=== PATIENT | female | born 1980 | race Caucasian/White ===

== ENCOUNTER 2017-04-01 17:24 | Emergency (ER) | payer SELFPAY ==
[2017-04-01 17:40] VITALS: BP 119/64
--- NOTE | 2017-04-01 18:32 | UC ---
Hand/Wrist HPI - History Of Current Complaint Chief Complaint: UCUpperExtremity Stated Complaint: RIGHT RING FINGER INJURY Time Seen by Provider: 04/01/17 18:24 Hx Obtained From: Patient Hx Last Menstrual Period: 04/01/17 ?: No Onset/Duration: Sudden Onset - Hit hand on the ground last night., Still Present Severity Initially: Moderate Severity Currently: Moderate Pain Intensity: 7 Character Of Pain: Aching, Throbbing, Burning - with movement - Allergies/Home Medications Allergies/Adverse Reactions: Allergies Allergy/AdvReac Type Severity Reaction Status Date / Time Penicillins Allergy Intermediate Hives Verified 04/12/16 10:04 Sulfa Drugs Allergy Intermediate Hives Verified 04/12/16 10:04 Povidone Iodine Allergy Rash Verified 04/12/16 10:04 [From Betadine] Ibuprofen AdvReac Intermediate GI Upset Verified 04/12/16 10:04 Morphine AdvReac Intermediate Itching Verified 04/12/16 10:04 Iodine AdvReac Mild Rash Verified 04/12/16 10:04 Morphine and Related AdvReac Abdominal Verified 04/12/16 10:44 Pain EGGS Allergy See Comment Uncoded 09/20/15 03:38 CAT GUT SUTURES AdvReac Severe SEVERE Uncoded 09/19/15 14:17 SWELLING PMH/Surg Hx/FS Hx/Imm Hx Endocrine History: Hypothyroidism Cardiovascular History: Hypertension Psychological History: Depression - Surgical History Surgical History: Yes Surgery Procedure, Year, and Place: 1999 [place]OMY- [facility] [place], [place]. 3 C-SECTIONS- [place] 2007 TUBAL LIGATION- [place] hemilaminotomy with disc excision 05/2013 [place] [facility]IN[facility] L5-S1. CHOLECYSTECTOMY--09/2015 - Family History Known Family History: Positive: Unknown, Cardiac Disease, Hypertension, Diabetes - Social History Occupation: Employed Full-time Lives: With Family Alcohol Use: Rare Substance Use Type: None Smoking Status (MU): Current Every Day Smoker Type: Cigarettes Amount Used/How Often: 8 cigarettes/day Length of Time of Smoking/Using Tobacco: 20 YRS Have You Smoked in the Last Year: Yes Household Exposure Type: Cigarettes Cessation Counseling: Patient Advised to Stop - Immunization History Most Recent Influenza Vaccination: none Most Recent Tetanus Shot: 04/06 Most Recent Pneumonia Vaccination: never Review of Systems Skin: Bruising - right 4th finger Neurological: Numbness - right 4th finger Is Patient Immunocompromised?: No All Other Systems Reviewed And Are Negative: Yes Physical Exam Triage Information Reviewed: Yes Appearance: Well-Appearing, No Pain Distress, Well-Nourished Vital Signs: Initial Vital Signs Temp 98.2 F 04/01/17 17:32 Pulse 92 04/01/17 17:32 Resp 16 04/01/17 17:32 BP 119/64 04/01/17 17:32 Pulse Ox 99 04/01/17 17:32 Vital Signs Reviewed: Yes Eyes: Positive: Conjunctiva Clear Neck exam: Normal Respiratory Exam: Normal Cardiovascular Exam: Normal Musculoskeletal: Positive: ROM Limited @ - right 4th finger swollen unable to flex. Neurological: Positive: Other: - Abscence sensation on the vallecillo surface of the right 4th finger and the whole ulnar dorsal surface and radial surface from the PIP to the tip. Psychological Exam: Normal Skin: Positive: Other - bruising vallecillo right 4th finger Diagnostics - Radiology No standard instances Xray Interpretation: Positive (See Comments) - proximal palmar middle 4th phalynx chip fracture non-displaced Radiology Interpretation Completed By: ED Physician Hand/Wrist Course/Dx - Differential Dx/Diagnosis Differential Diagnosis/HQI/PQRI: Fracture, Sprain, Strain Provider Diagnoses: Right 4th finger middle phalynx chip fracture. Neuritis/ Neuralgia Nerve injury right 4th finger. Discharge - Discharge Plan Condition: Stable Disposition: HOME Prescriptions: Gabapentin CAP(*) [Neurontin 300 CAP(*)] 300 mg PO TID #90 cap Patient Education Materials: Finger Fracture (ED), Splint Care (ED) Referrals: Neli Miguel MD [Primary Care Provider] - Lynn Novoa MD [Medical Doctor] - 2 Days (on nerve injury in the finger.) Additional Instructions: Smoking Cessation Tricks. 1. Cut down by 1 cigarette per day every 2-3 days. Write the number of smokes for that day on the calendar. 2. Identify triggers to smoking: after meals, on the phone, in the car, with coffee, on breaks at work, etc. 3. Formulate a plan with a behavior to replace the smoking. Fireballs in the car , doodle pad on the phone, flavored creamer for the coffee, go for a walk after a meal or on break at work. 4. For stress smokes do deep breathing relaxation. Breath deep in through the nose hold the breath in for a few seconds then breath out slowly through the mouth. GABAPENTIN: Gabapentin is an anti-seizure medication that is more often used for nerve pain. It helps to stabilize the nerve to stop the pain. Its primary side effect is sedation which will improve over time. Most people will start with only one capsule 1 to 2 hours before bed, but if your pain is more severe you may want to start with one capsule twice a day. If the pain is still an issue after another 1-2days the dose may be increased to a maximum of 1 capsule 3 times a day. Decrease the dose by one capsule a day if there is excessive sedation or it is not working. You can also decrease it to discontinue it if the pain is resolving.
--- NOTE | 2017-04-01 19:06 | RAD ---
HISTORY: Fourth digit hyperextension injury COMPARISONS: None VIEWS: 3, Frontal, lateral, and oblique views of the fourth digit of the right hand FINDINGS: BONE DENSITY: Normal. BONES: There is a small bone fragment along the base of the middle phalanx along the volar aspect at the PIP joint JOINTS: There is no arthropathy. ALIGNMENT: There is no dislocation. SOFT TISSUES: Unremarkable. OTHER FINDINGS: None. IMPRESSION: SMALL NONDISPLACED FRACTURE OF THE BASE OF THE MIDDLE PHALANX OF THE FOURTH DIGIT
== END 2017-04-01 19:05 | disposition home or self-care (01) ==
LOC: UCCORT 17:24
DX: S62.622A Displaced fracture of middle phalanx of right middle finger, initial encounter for closed fracture (principal); S64.492A Injury of digital nerve of right middle finger, initial encounter; M79.2 Neuralgia and neuritis, unspecified; F17.210 Nicotine dependence, cigarettes, uncomplicated; W19.XXXA Unspecified fall, initial encounter; Z88.2 Allergy status to sulfonamides; Z88.0 Allergy status to penicillin; Z88.8 Allergy status to other drugs, medicaments and biological substances; Z88.5 Allergy status to narcotic agent; Z91.012 Allergy to eggs; Z91.048 Other nonmedicinal substance allergy status
CPT/HCPCS: 73140; 99212; G0463

== ENCOUNTER 2017-08-01 21:20 | Emergency (ER) | payer SELFPAY ==
[2017-08-01 21:31] VITALS: BP 113/63
--- NOTE | 2017-08-01 21:43 | UC ---
Respiratory Complaint HPI - HPI Summary HPI Summary: Pt presents with 2 days of nausea, diarrhea, body aches, sinus congestion, sore throat and tactile temps. Pt has taken OTC decongestant x 1 with improvement. No rash. Pt with + sick contacts. + cough, no wheeze. No flu vaccine + flu contacts Pt's medications reviewed this visit - History of Current Complaint Chief Complaint: UCRespiratory Stated Complaint: HEADACHE,UPSET STOMACH Time Seen by Provider: 08/01/17 21:43 Hx Obtained From: Patient Hx Last Menstrual Period: 08/01/17 ?: No Onset/Duration: Sudden Onset, Lasting Days Timing: Constant Severity Initially: Moderate Severity Currently: Moderate Pain Intensity: 10 Pain Scale Used: 0-10 Numeric Character: Cough: Nonproductive - Allergies/Home Medications Allergies/Adverse Reactions: Allergies Allergy/AdvReac Type Severity Reaction Status Date / Time MS Penicillins [Penicillins] Allergy Intermediate Hives Verified 08/01/17 21:31 MS Sulfa Drugs [Sulfa Drugs] Allergy Intermediate Hives Verified 08/01/17 21:31 MS Povidone Iodine Allergy Rash Verified 08/01/17 21:31 [From Betadine] MS Ibuprofen [Ibuprofen] AdvReac Intermediate GI Upset Verified 08/01/17 21:31 MS Morphine [Morphine] AdvReac Intermediate Itching Verified 08/01/17 21:31 MS Iodine [Iodine] AdvReac Mild Rash Verified 08/01/17 21:31 MS Morphine and Related AdvReac Abdominal Verified 08/01/17 21:31 [Morphine and Related] Pain EGGS Allergy See Comment Uncoded 08/01/17 21:31 CAT GUT SUTURES AdvReac Severe SEVERE Uncoded 08/01/17 21:31 SWELLING Home Medications: Home Medications Acetaminophen/Diphenhydramine [Acetaminophen/Diphenhydra 25-500 mg] 1 tab PO 12/11 [History] Aspirin/Acetaminophen/Caffeine [Excedrin Migraine Caplet] 1 each PO 08/01/17 [ History] PMH/Surg Hx/FS Hx/Imm Hx Previously Healthy: Yes - Surgical History Surgical History: Yes Surgery Procedure, Year, and Place: [place] [facility] [place]. 3 C-SECTIONS- [place] 2007 TUBAL LIGATION- [place] hemilaminotomy with disc excision 05/2013 [place] [facility]INOT[facility] L5-S1. CHOLECYSTECTOMY--09/2015 - Family History Known Family History: Positive: Unknown, Cardiac Disease, Hypertension, Diabetes - Social History Occupation: Employed Full-time Lives: With Family Alcohol Use: Rare Substance Use Type: None Smoking Status (MU): Light Every Day Tobacco Smoker Type: Cigarettes Amount Used/How Often: 8 cigarettes/day Length of Time of Smoking/Using Tobacco: 20 YRS Have You Smoked in the Last Year: Yes Household Exposure Type: Cigarettes - Immunization History Most Recent Influenza Vaccination: none Most Recent Tetanus Shot: 04/06 Most Recent Pneumonia Vaccination: never Review of Systems Constitutional: Fever, Fatigue Skin: Negative ENT: Sore Throat, Ear Ache, Nasal Discharge, Sinus Congestion Respiratory: Cough Cardiovascular: Negative Gastrointestinal: Negative Genitourinary: Negative Motor: Negative Neurovascular: Negative Musculoskeletal: Negative All Other Systems Reviewed And Are Negative: Yes Physical Exam Triage Information Reviewed: Yes Appearance: Well-Appearing, No Pain Distress, Well-Nourished Vital Signs: Initial Vital Signs Temp 98.2 F 08/01/17 21:27 Pulse 56 08/01/17 21:27 Resp 18 08/01/17 21:27 BP 113/63 08/01/17 21:27 Pulse Ox 98 08/01/17 21:27 Vital Signs Reviewed: Yes Eye Exam: Normal Eyes: Positive: Conjunctiva Clear ENT: Positive: Hearing grossly normal, Pharyngeal erythema, Nasal congestion, TMs normal. Negative: Tonsillar swelling, Tonsillar exudate Dental Exam: Normal Neck exam: Normal Neck: Positive: Supple, Nontender, No Lymphadenopathy Respiratory Exam: Normal Respiratory: Positive: Chest non-tender, Lungs clear, Normal breath sounds, No respiratory distress, No accessory muscle use, Other: - coarse cough Cardiovascular Exam: Normal Cardiovascular: Positive: RRR, No Murmur, Pulses Normal Abdominal Exam: Normal Abdomen Description: Positive: Nontender, No Organomegaly, Soft Bowel Sounds: Positive: Present Musculoskeletal Exam: Normal Musculoskeletal: Positive: Strength Intact Neurological Exam: Normal Neurological: Positive: Alert Psychological Exam: Normal Psychological: Positive: Normal Response To Family Skin Exam: Normal UC Diagnostic Evaluation - Laboratory O2 Sat by Pulse Oximetry: 98 Respiratory Course/Dx - Course Course Of Treatment: Pt with 2 days body aches, cough, congestion. Tactile temp. mild improved with decongestant. pt with neg flu,e xtensive flu exposure. tamiflu prophylaxis. Doxy for sinuses. secretion precautions - Differential Dx/Diagnosis Provider Diagnoses: sinusitis. influenza exposure Discharge - Discharge Plan Condition: Stable Disposition: HOME Prescriptions: DOXYcycline CAP(*) [DOXYcycline 100MG CAP(*)] 100 mg PO BID #14 cap Fluticasone NASAL SPRAY 50MCG* [Flonase NASAL SPRAY 50MCG*] 1 spray BOTH NARES DAILY #1 btl Oseltamivir Phosphate [Tamiflu] 75 mg PO DAILY #9 capsule Patient Education Materials: Rhinosinusitis (ED) Forms: *Gen. Provider Communication, *Work Release Referrals: Neli Miguel MD [Primary Care Provider] - Additional Instructions: - Stay well hydrated. Drink plenty of non-alcoholic, non-caffinated beverages. - Okay to take Tylenol every 6 hours for pain or fever. Take with food. Do NOT take for more than 4-5 days. - These infections are spread by secretions - do NOT share eating or drinking utensils - clean items you share with other people such as cell phones, computer mouse, TV remote, computer tablets, etc. After you have taken Tamiflu , change your toothbrush and your pillowcase. - get plenty of restful sleep -use nasal spray daily as prescribed - humidify the air in the room where you sleep - boil water, run a hot steam shower, vaporizer, cups of water by heat register - okay to take over the counter decongestant and cough medication - contact your doctor or return with questions or concerns
[2017-08-01] MEDS ORDERED: Oseltamivir CAP* 75 MG CAP PO ONE (22:03)
[2017-08-01] MEDS ORDERED: DOXYcycline CAP(*) 100 MG PO ONE (22:03)
== END 2017-08-01 22:12 | disposition home or self-care (01) ==
LOC: UCCORT 21:20
DX: J32.9 Chronic sinusitis, unspecified (principal); Z20.828 Contact with and (suspected) exposure to other viral communicable diseases; F17.210 Nicotine dependence, cigarettes, uncomplicated
CPT/HCPCS: 87502; 99212; A9270-GY; G0463

== ENCOUNTER 2017-10-23 14:32 | Emergency (ER) | payer OTHER ==
[2017-10-23 14:52] VITALS: BP 117/78
[2017-10-23] MEDS ORDERED: Ketorolac INJ* 30 MG/ML 1 ML VIAL IM ONE (15:07)
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
--- NOTE | 2017-10-23 16:02 | RAD ---
Indication: Left rib injury. 3 views of left ribs demonstrates no fracture. No other bone or joint abnormality is identified. IMPRESSION: No fracture of left ribs is noted.
== END 2017-10-23 16:29 | disposition home or self-care (01) ==
LOC: UCEAST 14:32
DX: S29.9XXA Unspecified injury of thorax, initial encounter (principal); X58.XXXA Exposure to other specified factors, initial encounter; Y93.9 Activity, unspecified; Y92.9 Unspecified place or not applicable; Z88.6 Allergy status to analgesic agent; Z88.3 Allergy status to other anti-infective agents; Z88.5 Allergy status to narcotic agent; Z88.0 Allergy status to penicillin; Z88.2 Allergy status to sulfonamides; F17.210 Nicotine dependence, cigarettes, uncomplicated
CPT/HCPCS: 71046; 96372; 99212; G0463; J1885

== ENCOUNTER 2018-02-14 12:56 | Emergency (ER) | payer OTHER ==
[2018-02-14 14:01] VITALS: BP 128/73
[2018-02-14] MEDS ORDERED: Acetaminophen TAB* 325 MG PO ONE (14:09)
[2018-02-14] MEDS ORDERED: Lidocaine 2% PF * 5 ML VIAL INJ ONE (14:10)
--- NOTE | 2018-02-14 14:17 | UC ---
Laceration HPI - HPI Summary HPI Summary: Pt presents with injury to RUE Pt tripped and stuck arm on old garage door window. Pt with laceration to right hand and right forearm no paresthesia no weakness no other injuries tdap utd not immunocompromised RHD Pts medications reviewed this visit - History Of Current Complaint Chief Complaint: UCLaceration Stated Complaint: RIGHT FOREARM LACERATION Time Seen by Provider: 02/14/18 13:51 Hx Obtained From: Patient Hx Last Menstrual Period: 10/03/17 Pain Intensity: 7 - Allergies/Home Medications Allergies/Adverse Reactions: Allergies Allergy/AdvReac Type Severity Reaction Status Date / Time Penicillins Allergy Hives Verified 02/14/18 14:00 povidone-iodine Allergy Rash Verified 02/14/18 14:00 Sulfa (Sulfonamide Allergy Hives Verified 02/14/18 14:00 Antibiotics) ibuprofen AdvReac GI Upset Verified 02/14/18 14:00 morphine AdvReac Abdominal Verified 02/14/18 14:00 Pain EGGS Allergy See Comment Uncoded 02/14/18 14:00 CAT GUT SUTURES AdvReac Severe SEVERE Uncoded 02/14/18 14:00 SWELLING PMH/Surg Hx/FS Hx/Imm Hx Previously Healthy: Yes - Surgical History Surgical History: Yes Surgery Procedure, Year, and Place: 1999 [place] [facility] [place]. 3 C-SECTIONS- [place] 2008 TUBAL LIGATION- [place] hemilaminotomy with disc excision 05/2013 [place] LAMINOTOMY L5-S1. CHOLECYSTECTOMY--09/2015 - Family History Known Family History: Positive: Cardiac Disease, Hypertension, Diabetes - Social History Alcohol Use: None Substance Use Type: None Smoking Status (MU): Light Every Day Tobacco Smoker Type: Cigarettes Amount Used/How Often: 8 cigarettes/day Length of Time of Smoking/Using Tobacco: 20 YRS Have You Smoked in the Last Year: Yes Household Exposure Type: Cigarettes - Immunization History Most Recent Influenza Vaccination: none Most Recent Tetanus Shot: 2014 Most Recent Pneumonia Vaccination: never Review of Systems Skin: Bruising, Other All Other Systems Reviewed And Are Negative: Yes Physical Exam - Summary Physical Exam Summary: Vital Signs Reviewed: Yes A+Ox3, no distress Eyes: Conjunctiva Clear ENT: Hearing grossly normal neck: supple Respiratory: Positive: No respiratory distress, No accessory muscle use Cardiovascular: skin color reflect adequate perfusion 2 + radial, ulna CBT <2 sec Musculoskeletal Exam: BOOTHE x 4 without difficulty + flex/ext elbow, wrist + pronate/supinate + flex/ext all digits no crepitus Neurological: Positive: Alert, ambulatory without difficulty + thumb up, a ok, finger cross, finger spread 5/5 grasp Psychological: Positive: Normal Response To Family Skin: Positive: no rash, no ecchymosis pt with small non suturable abraison right right and middle finger, dorsum no palmar wounds pt with 1.5cm right mid forearm, volar surface wound no active bleeding small area surround ecchymosis Triage Information Reviewed: Yes Vital Signs: Initial Vital Signs Temp 98.8 F 02/14/18 13:51 Pulse 80 02/14/18 13:51 Resp 18 02/14/18 13:51 BP 128/73 02/14/18 13:51 Pulse Ox 96 02/14/18 13:51 Laceration Repair - Laceration Repair 1 Procedure Summary: verbal permission to treat time out completed with RN at bedside pt prepped in usual, sterile fashion copious irrigation with 200ml sterile saline under pressure Pt tolerated well good approx reviewed s/s infection, wound care return precautions abx Description: Linear Laceration Size After Repair: Length (cm) - 1.5 Type Injection: Local Anesthesia Used: 1.0% Lido Cleansing Completed Via Routine Prep: Yes Closure Material: Sutures - 3 Closure Method: Single Layer Suture Of: Skin - 4-0 Diagnostics - Radiology No standard instances Xray Interpretation: No Acute Changes Radiology Interpretation Completed By: Radiologist - Patient Name: MANUEL RODAS I Medical Record#: [id number] Ordering Physician: Sapna Eckert MD Acct.#: [id number] : 1980 Age: 37 Sex: F Location: [facility] Exam Date: 02/14/18 1408 ADM Status: REG ER Order Information: FOREARM RIGHT 2 VWS Accession Number: [id number] CPT: 34040 HISTORY: trauma - puncture wound ? FB COMPARISONS : None VIEWS: 4 , Frontal and lateral views of the right hand and forearm. Evaluation is limited by metallic jewelry overlying the wrist. FINDINGS: BONE DENSITY: Normal. BONES: There is no displaced fracture. JOINTS: There is no arthropathy. ALIGNMENT: There is no dislocation. SOFT TISSUES: Unremarkable. OTHER FINDINGS: None. IMPRESSION: NO ACUTE OSSEOUS INJURY TO THE RIGHT HAND OR FOREARM. EVALUATION IS LIMITED BY METALLIC JEWELRY OVERLYING THE WRIST. THERE ARE NO OTHER RADIOPAQUE FOREIGN BODIES.. IF SYMPTOMS PERSIST, RECOMMEND REPEAT IMAGING. <Electronically signed by Geovany Kaur MD in OV> 02/14/18 1433 Dictated By: Geovany Kaur MD Dictated Date/Time: 02/14/18 1433 Transcribed Date/Time: 02/14/18 1431 Copy to: CC:Neli Miguel MD; Sapna Eckert MD Imaging - [facility] Imaging - [facility] [address] [place] [address] ph ([phone]) ph ([phone]) ([phone]) This report is only to be considered final once signed by the Provider(s) as displayed in the "<Electronically Signed by > " field (s). Absence of a signature indicates the report is in a draft status and still needs to be finalized. In the event this document was created by someone other than the signing Provider, the individual initiating the document will be listed in the "Entered by:" or "Dictated by:" dumont. 1 of 1 Patient Name: MANUEL RODAS I Medical Record#: [id number] Ordering Physician: Sapna Eckert MD Acct.#: [id number] : 1980 Age: 37 Sex: F Location: [facility] Exam Date : 02/14/18 1409 ADM Status: REG ER Order Information: HAND RIGHT 2 VWS Accession Number: [id number] CPT: 70936 HISTORY: trauma - puncture wound ? FB COMPARISONS: None VIEWS: 4 , Frontal and lateral views of the right hand and forearm. Evaluation is limited by metallic jewelry overlying the wrist. FINDINGS: BONE DENSITY: Normal. BONES: There is no displaced fracture. JOINTS: There is no arthropathy. ALIGNMENT: There is no dislocation. SOFT TISSUES: Unremarkable. OTHER FINDINGS: None. IMPRESSION: NO ACUTE OSSEOUS INJURY TO THE RIGHT HAND OR FOREARM. EVALUATION IS LIMITED BY METALLIC JEWELRY OVERLYING THE WRIST. THERE ARE NO OTHER RADIOPAQUE FOREIGN BODIES.. IF SYMPTOMS PERSIST, RECOMMEND REPEAT IMAGING. <Electronically signed by Geovany Kaur MD in OV> 02/14/18 1433 Dictated By: Geovany Kaur MD Dictated Date/Time: 02/14/18 1433 Transcribed Date/Time: 02/14/18 1431 Copy to: CC:Neli Miguel MD; Sapna Eckert MD Imaging - [facility] [address] [place] [address] ph ([phone]) ph ([phone]) ph ([phone]) This report is only to be considered final once signed by the Provider(s) as displayed in the "<Electronically Signed by > " field (s). Absence of a signature indicates the report is in a draft status and still needs to be finalized. In the event this document was created by someone other than the signing Provider, the individual initiating the document will be listed in the "Entered by:" or "Dictated by:" dumont. 1 of 1 Laceration Course/Dx - Course/Dx Course Of Treatment: pt with abraison, laceration and contusion to right hand s/ p trip and fall and strike window. will check imaging. analgesia. ice. wound care. laceration repair. s/s infection. work note - Differential Dx - Laceration/Wound Provider Diagnoses: right hand contusion, abraison, laceration Discharge - Sign-Out/Discharge Documenting (check all that apply): Patient Departure All imaging exams completed and their final reports reviewed: Yes - Discharge Plan Condition: Stable Disposition: HOME Patient Education Materials: Laceration (ED), Contusion in Adults (ED) Referrals: Neli Miguel MD [Primary Care Provider] - Additional Instructions: - your stitches should come out in 8-10 days - you can return here, go to your Doctor or any urgent care center - okay to take Tylenol every 6 hours as needed for pain -Anticipate increased discomfort over the next several hours as the numbing medication wears off -Keep your wound clean and dry - no soaking for 24 hours. Then, okay for wound to get wet - pat dry, don't rub -apply a thin layer of antibiotic ointment (neosporin, polysporin) 2-3 times a day - when you have a cut, you will have a scar. To minimize scar formation - keep your wound clean - monitor for signs of infection - reddness, red streaking, odor, green drainage - wear splint for comfort and support. - Contact your doctor or return here with questions or concerns - Billing Disposition and Condition Condition: STABLE Disposition: Home
--- NOTE | 2018-02-14 14:36 | RAD ---
HISTORY: trauma - puncture wound ? FB COMPARISONS: None VIEWS: 4 , Frontal and lateral views of the right hand and forearm. Evaluation is limited by metallic jewelry overlying the wrist. FINDINGS: BONE DENSITY: Normal. BONES: There is no displaced fracture. JOINTS: There is no arthropathy. ALIGNMENT: There is no dislocation. SOFT TISSUES: Unremarkable. OTHER FINDINGS: None. IMPRESSION: NO ACUTE OSSEOUS INJURY TO THE RIGHT HAND OR FOREARM. EVALUATION IS LIMITED BY METALLIC JEWELRY OVERLYING THE WRIST. THERE ARE NO OTHER RADIOPAQUE FOREIGN BODIES.. IF SYMPTOMS PERSIST, RECOMMEND REPEAT IMAGING.
== END 2018-02-14 14:57 | disposition home or self-care (01) ==
LOC: UCCORT 12:56
DX: S60.221A Contusion of right hand, initial encounter (principal); S60.412A Abrasion of right middle finger, initial encounter; S51.811A Laceration without foreign body of right forearm, initial encounter; W22.8XXA Striking against or struck by other objects, initial encounter; Y93.9 Activity, unspecified; Y92.9 Unspecified place or not applicable; Z88.5 Allergy status to narcotic agent; Z88.0 Allergy status to penicillin; Z88.2 Allergy status to sulfonamides; Z88.6 Allergy status to analgesic agent; Z91.012 Allergy to eggs; F17.210 Nicotine dependence, cigarettes, uncomplicated
CPT/HCPCS: 12001; 99212; 99213; A9270-GY; G0463

== ENCOUNTER 2018-02-23 12:03 | Emergency (ER) | payer OTHER ==
[2018-02-23 12:39] VITALS: BP 119/69
--- NOTE | 2018-02-23 13:03 | UC ---
HPI Wound/Suture Re-check - HPI Summary HPI Summary: Patient is to urgent care today to have 3 stitches removed from her right arm. Wound has healed well, well approximated, no evidence of infection, no redness swelling drainage. - History Of Current Complaint Chief Complaint: UCLaceration Stated Complaint: STITCH REMOVAL Time Seen by Provider: 02/23/18 12:48 Hx Obtained From: Patient Hx Last Menstrual Period: 02/07/18 Onset/Duration: Sudden Onset, Lasting Days Pain Intensity: 0 Pain Scale Used: 0-10 Numeric - Allergies/Home Medications Allergies/Adverse Reactions: Allergies Allergy/AdvReac Type Severity Reaction Status Date / Time Penicillins Allergy Hives Verified 02/14/18 14:00 povidone-iodine Allergy Rash Verified 02/14/18 14:00 Sulfa (Sulfonamide Allergy Hives Verified 02/14/18 14:00 Antibiotics) ibuprofen AdvReac GI Upset Verified 02/14/18 14:00 morphine AdvReac Abdominal Verified 02/14/18 14:00 Pain EGGS Allergy See Comment Uncoded 02/14/18 14:00 CAT GUT SUTURES AdvReac Severe SEVERE Uncoded 02/14/18 14:00 SWELLING PMH/Surg Hx/FS Hx/Imm Hx Previously Healthy: Yes - Surgical History Surgical History: Yes Surgery Procedure, Year, and Place: 1999 APP[place]OMY- [facility] [place], [place], [place]. 3 C-SECTIONS- [place] 2008 TUBAL LIGATION- [place] hemilaminotomy with disc excision 05/2013 [place] LAMINOTOMY L5-S1. CHOLECYSTECTOMY--09/2015 - Family History Known Family History: Positive: Cardiac Disease, Hypertension, Diabetes - Social History Occupation: Employed Full-time Lives: With Family Alcohol Use: None Substance Use Type: None Smoking Status (MU): Light Every Day Tobacco Smoker Type: Cigarettes Amount Used/How Often: 8 cigarettes/day Length of Time of Smoking/Using Tobacco: 20 YRS Have You Smoked in the Last Year: Yes Household Exposure Type: Cigarettes - Immunization History Most Recent Influenza Vaccination: none Most Recent Tetanus Shot: 2013 Most Recent Pneumonia Vaccination: never Review of Systems Constitutional: Negative Skin: Negative Eyes: Negative ENT: Negative Respiratory: Negative Cardiovascular: Negative Gastrointestinal: Negative Genitourinary: Negative Motor: Negative Neurovascular: Negative Musculoskeletal: Negative Neurological: Negative Psychological: Negative Is Patient Immunocompromised?: No All Other Systems Reviewed And Are Negative: Yes Physical Exam Triage Information Reviewed: Yes Appearance: Well-Appearing, No Pain Distress, Well-Nourished Vital Signs: Initial Vital Signs Temp 96.5 F 02/23/18 12:35 Pulse 77 02/23/18 12:35 Resp 18 02/23/18 12:35 BP 119/69 02/23/18 12:35 Pulse Ox 100 02/23/18 12:35 Vital Signs Reviewed: Yes Eye Exam: Normal Eyes: Positive: Conjunctiva Clear ENT Exam: Normal ENT: Positive: Normal ENT inspection, Hearing grossly normal. Negative: Trismus , Muffled voice, Hoarse voice Dental Exam: Normal Neck exam: Normal Neck: Positive: Supple, Nontender Respiratory Exam: Normal Respiratory: Positive: Chest non-tender, No respiratory distress, No accessory muscle use Cardiovascular Exam: Normal Cardiovascular: Positive: RRR, Pulses Normal, Brisk Capillary Refill Musculoskeletal Exam: Normal Musculoskeletal: Positive: Strength Intact, ROM Intact, No Edema Neurological Exam: Normal Neurological: Positive: Alert, Muscle Tone Normal Psychological Exam: Normal Skin Exam: Normal Skin: Positive: Other - well healed wound right forarm Course/Dx - Course Course Of Treatment: sutures removed, patient tolerated well, no c/o - Differential Dx - Laceration/Wound Provider Diagnoses: suture removal right forearm, nicotine dependant, Discharge - Sign-Out/Discharge Documenting (check all that apply): Patient Departure All imaging exams completed and their final reports reviewed: No Studies - Discharge Plan Condition: Stable Disposition: HOME Patient Education Materials: Stitches Removal (ED) Referrals: Neli Miguel MD [Primary Care Provider] - If Needed - Billing Disposition and Condition Condition: STABLE Disposition: Home
== END 2018-02-23 13:08 | disposition home or self-care (01) ==
LOC: UCEAST 12:03
DX: Z48.02 Encounter for removal of sutures (principal); F17.210 Nicotine dependence, cigarettes, uncomplicated
CPT/HCPCS: 99211; G0463

== ENCOUNTER 2018-03-02 11:59 | Emergency (ER) | payer OTHER ==
--- NOTE | 2018-03-02 12:28 | UC ---
UC General HPI - HPI Summary HPI Summary: Patient is complaining of frequency urgency and burning with urination since yesterday that is getting progressively worse. She also notes some hesitation with urination. She denies any associated fever, abdominal pain, flank pain, or concern for pelvic infection. - History of Current Complaint Stated Complaint: URINARY Time Seen by Provider: 03/02/18 12:20 Hx Obtained From: Patient Hx Last Menstrual Period: 02/07/18 Onset/Duration: Gradual Onset Timing: Constant Alleviating: NOTHING Associated Signs & Symptoms: Negative: Abdominal Pain, Fever - Allergy/Home Medications Allergies/Adverse Reactions: Allergies Allergy/AdvReac Type Severity Reaction Status Date / Time Penicillins Allergy Hives Verified 03/02/18 12:34 povidone-iodine Allergy Rash Verified 03/02/18 12:34 Sulfa (Sulfonamide Allergy Hives Verified 03/02/18 12:34 Antibiotics) ibuprofen AdvReac GI Upset Verified 03/02/18 12:34 morphine AdvReac Abdominal Verified 03/02/18 12:34 Pain EGGS Allergy See Comment Uncoded 03/02/18 12:34 CAT GUT SUTURES AdvReac Severe SEVERE Uncoded 03/02/18 12:34 SWELLING PMH/Surg Hx/FS Hx/Imm Hx Previously Healthy: Yes - Surgical History Surgical History: Yes Surgery Procedure, Year, and Place: 1999 [place] [facility] [place], [place], [place]. 3 C-SECTIONS- [place] 2008 TUBAL LIGATION- [place] hemilaminotomy with disc excision 05/2013 [place] LAMINOTOMY L5-S1. CHOLECYSTECTOMY--09/2015 - Family History Known Family History: Positive: Cardiac Disease, Hypertension, Diabetes - Social History Occupation: Employed Part-time Lives: With Family Alcohol Use: None Substance Use Type: None Smoking Status (MU): Light Every Day Tobacco Smoker Type: Cigarettes Amount Used/How Often: 8 cigarettes/day Length of Time of Smoking/Using Tobacco: 20 YRS Have You Smoked in the Last Year: Yes Household Exposure Type: Cigarettes - Immunization History Most Recent Influenza Vaccination: none Most Recent Tetanus Shot: 2013 Most Recent Pneumonia Vaccination: never Vaccination Up to Date: Yes Review of Systems Constitutional: Negative Skin: Negative Eyes: Negative ENT: Negative Respiratory: Negative Cardiovascular: Negative Gastrointestinal: Negative Genitourinary: Dysuria, Hematuria, Frequency, Urgency Motor: Negative Neurovascular: Negative Musculoskeletal: Negative Neurological: Negative Psychological: Negative Is Patient Immunocompromised?: No All Other Systems Reviewed And Are Negative: Yes Physical Exam Triage Information Reviewed: Yes Appearance: Well-Appearing Eyes: Positive: Conjunctiva Clear ENT: Positive: Normal ENT inspection Neck: Positive: Supple, Nontender, No Lymphadenopathy Respiratory: Positive: Lungs clear, Normal breath sounds Cardiovascular: Positive: RRR, No Murmur Abdomen Description: Positive: Nontender, No Organomegaly, Soft. Negative: CVA Tenderness (R), CVA Tenderness (L), Distended, Guarding Bowel Sounds: Positive: Present Musculoskeletal: Positive: ROM Intact Neurological: Positive: Alert Psychological: Positive: Age Appropriate Behavior Skin Exam: Normal Diagnostics - Laboratory Diagnostic Studies Completed/Ordered: u/a=postive protein, blood, leukocytes. culture pending. Course/Dx - Course Course Of Treatment: non toxic, no acute abdomen. no concern for pyelonephritis. - Differential Dx - Multi-Symptom Provider Diagnoses: UTI Discharge - Sign-Out/Discharge Documenting (check all that apply): Patient Departure All imaging exams completed and their final reports reviewed: No Studies - Discharge Plan Condition: Stable Disposition: HOME Prescriptions: Nitrofurantoin Monohyd/M-Cryst [Macrobid 100 mg Capsule] 100 mg PO BID 5 Days # 10 cap Patient Education Materials: Urinary Tract Infection in Women (ED) Referrals: Neli Miguel MD [Primary Care Provider] - 7 Days - Billing Disposition and Condition Condition: STABLE Disposition: Home
[2018-03-02 12:39] VITALS: BP 132/71
== END 2018-03-02 13:04 | disposition home or self-care (01) ==
LOC: UCCORT 11:59
DX: N39.0 Urinary tract infection, site not specified (principal)
CPT/HCPCS: 81003; 87077; 87086; 87186; 99212; G0463

== ENCOUNTER 2019-06-15 20:36 | Emergency (ER) | payer OTHER ==
[2019-06-15 20:47] VITALS: BP 137/83
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
[2019-06-17 14:11] LABS: Chlamydia trachomatis NAA Negative (Negative); Neisseria gonorrhoeae (GC) NAA Negative (Negative)
== END 2019-06-15 21:17 | disposition home or self-care (01) ==
LOC: UCCORT 20:36
DX: N89.8 Other specified noninflammatory disorders of vagina (principal); R30.0 Dysuria; F17.210 Nicotine dependence, cigarettes, uncomplicated; Z88.0 Allergy status to penicillin; Z88.5 Allergy status to narcotic agent; Z88.6 Allergy status to analgesic agent; Z88.2 Allergy status to sulfonamides; Z91.012 Allergy to eggs; Z88.8 Allergy status to other drugs, medicaments and biological substances; Z91.09 Other allergy status, other than to drugs and biological substances
CPT/HCPCS: 81003; 87480; 87491; 87510; 87591; 87660; 99211; G0463

== ENCOUNTER 2019-07-01 21:50 | Emergency (ER) | payer OTHER ==
[2019-07-01 21:57] VITALS: BP 142/90
[2019-07-01] MEDS ORDERED: Neomyc/Polym/HC 1% OTIC SUSP* **OTIC LEFT EAR ONE (22:03)
--- NOTE | 2019-07-01 22:19 | UC ---
Ear Complaint HPI - HPI Summary HPI Summary: 38-year-old female presents with left ear pain 1 day. She's had a pressure and a popping sensation in the left ear. No fevers or chills. She has had some mild runny nose lately. No loss of hearing. No vertigo. She feels like she has potentially an ear infection. No medication prior to arrival. Nothing improved symptoms. Nothing worsened symptoms. - History of Current Complaint Chief Complaint: UCEar Stated Complaint: EAR COMPLAINT Time Seen by Provider: 07/01/19 22:01 Hx Obtained From: Patient Hx Last Menstrual Period: 05/27/19 Pain Intensity: 8 Pain Scale Used: 0-10 Numeric - Allergies/Home Medications Allergies/Adverse Reactions: Allergies Allergy/AdvReac Type Severity Reaction Status Date / Time Penicillins Allergy Hives Verified 07/01/19 21:57 povidone-iodine Allergy Rash Verified 07/01/19 21:57 Sulfa (Sulfonamide Allergy Hives Verified 07/01/19 21:57 Antibiotics) ibuprofen AdvReac GI Upset Verified 07/01/19 21:57 morphine AdvReac Abdominal Verified 07/01/19 21:57 Pain EGGS Allergy See Comment Uncoded 07/01/19 21:57 CAT GUT SUTURES AdvReac Severe SEVERE Uncoded 07/01/19 21:57 SWELLING PMH/Surg Hx/FS Hx/Imm Hx Previously Healthy: Yes - Surgical History Surgical History: Yes Surgery Procedure, Year, and Place: 1999 APPENDECTOMY- [facility] [place] 2000, 2002, 2007. 3 C-SECTIONS- [place] 2008 TUBAL LIGATION- [place] hemilaminotomy with disc excision 05/2013 [facility] LAMINOTOMY L5-S1. CHOLECYSTECTOMY--09/2015 - Family History Known Family History: Positive: Cardiac Disease, Hypertension, Diabetes - Social History Alcohol Use: Rare Substance Use Type: Marijuana Substance Use Comment - Amount & Last Used: daily Smoking Status (MU): Former Smoker Type: Cigarettes Amount Used/How Often: 8 cigarettes/day Length of Time of Smoking/Using Tobacco: 20 YRS Have You Smoked in the Last Year: Yes Household Exposure Type: Cigarettes - Immunization History Most Recent Influenza Vaccination: none Most Recent Tetanus Shot: 2013 Most Recent Pneumonia Vaccination: never Vaccination Up to Date: Yes Review of Systems All Other Systems Reviewed And Are Negative: Yes ENT: Positive: Ear Ache Physical Exam Appearance: Well-Appearing, No Pain Distress, Well-Nourished Vital Signs: Initial Vital Signs Temp 97.7 F 07/01/19 21:53 Pulse 83 07/01/19 21:53 Resp 16 07/01/19 21:53 BP 142/90 07/01/19 21:53 Pulse Ox 99 07/01/19 21:53 Vital Signs Reviewed: Yes Eye Exam: Normal ENT Exam: Normal ENT: Positive: TM dull - Left, Other - Left ear canal very tender to palpation. Pinna is tender. Mild swelling ear canal. No discharge in ear canal.. Negative: Nasal congestion, Nasal drainage, TM bulging, TM red, Sinus tenderness Dental Exam: Normal Neck exam: Normal Neck: Positive: 1 Respiratory Exam: Normal Cardiovascular Exam: Normal Abdominal Exam: Normal Musculoskeletal Exam: Normal Neurological Exam: Normal Psychological Exam: Normal Skin Exam: Normal Ear Complaint Course/Dx - Course Course Of Treatment: Mild serous effusion but moderate tenderness to palpation of the ear with mild swelling of the ear canal. Treat for otitis externa at this time. If symptoms worsen go to emergency room. Patient weren't agreeable to plan as well as the side effects of medication. Also advised to start antihistamine and nasal spray like Flonase. - Differential Dx/Diagnosis Differential Diagnosis/HQI/PQRI: Otitis Externa, Otitis Media, Perforated TM, URI Provider Diagnosis: Acute effusion of left ear, Acute otitis externa of left ear Discharge ED - Sign-Out/Discharge Documenting (check all that apply): Patient Departure All imaging exams completed and their final reports reviewed: No Studies - Discharge Plan Condition: Good Disposition: HOME Prescriptions: Fluticasone NASAL SPRAY 50MCG* [Flonase NASAL SPRAY 50MCG*] 2 spray BOTH NARES DAILY #1 btl Neomyc/Polym/HC 1% OTIC SUSP* [Cortisporin Otic Susp 1%*] 4 drop LEFT EAR QID # 1 btl Patient Education Materials: Otitis Externa (ED) Referrals: No Primary Care Phys,NOPCP [Primary Care Provider] - 3 Days - Billing Disposition and Condition Condition: GOOD Disposition: Home
== END 2019-07-01 22:10 | disposition home or self-care (01) ==
LOC: UCCORT 21:50
DX: H65.192 Other acute nonsuppurative otitis media, left ear (principal); H60.502 Unspecified acute noninfective otitis externa, left ear; R09.89 Other specified symptoms and signs involving the circulatory and respiratory systems; Z88.0 Allergy status to penicillin; Z88.2 Allergy status to sulfonamides; Z88.5 Allergy status to narcotic agent; Z91.012 Allergy to eggs; Z91.09 Other allergy status, other than to drugs and biological substances; Z87.891 Personal history of nicotine dependence
CPT/HCPCS: 99212; A9270-GY; G0463

== ENCOUNTER 2019-07-12 15:49 | Emergency (ER) | payer OTHER ==
[2019-07-12 16:03] VITALS: BP 118/58
[2019-07-12 16:22] LABS: Influenza A Molecular NEGATIVE (Negative); Influenza B Molecular NEGATIVE (Negative)
--- NOTE | 2019-07-12 16:28 | UC ---
FLU HPI - HPI Summary HPI Summary: Pt presnts with c/o nasal congestion, cough, generalized fatigue and malaise X 2 days. - History of Current Complaint Chief Complaint: UCGeneralIllness Stated Complaint: FLU LIKE SYMPTOMS Time Seen by Provider: 07/12/19 16:04 Hx Obtained From: Patient Hx Last Menstrual Period: 06/22/19 has had tubal ?: No Onset/Duration: Sudden Onset, Lasting Days, Still Present, Worse Since - osnet Severity Currently: Mild Severity Initially: Moderate Pain Intensity: 5 Associated Signs & Symptoms: Positive: Myalgia, Cough, Nasal Congestion Related Hx: Possible Flu/Infectious Exposure - Risk Factors Influenza Risk Factors: Negative - Allergy/Home Medications Allergies/Adverse Reactions: Allergies Allergy/AdvReac Type Severity Reaction Status Date / Time Penicillins Allergy Hives Verified 07/12/19 16:03 povidone-iodine Allergy Rash Verified 07/12/19 16:03 Sulfa (Sulfonamide Allergy Hives Verified 07/12/19 16:03 Antibiotics) ibuprofen AdvReac GI Upset Verified 07/12/19 16:03 morphine AdvReac Abdominal Verified 07/12/19 16:03 Pain EGGS Allergy See Comment Uncoded 07/12/19 16:03 CAT GUT SUTURES AdvReac Severe SEVERE Uncoded 07/12/19 16:03 SWELLING PMH/Surg Hx/FS Hx/Imm Hx Previously Healthy: Yes - Surgical History Surgical History: Yes Surgery Procedure, Year, and Place: [place] [facility] [place], [place]. 3 C-SECTIONS- [place] 2008 TUB[place] L[place] hemilaminotomy with disc excision 05/2013 [place] LAMINOTOM[facility] L5-S1. CHOLECYSTECTOMY--09/2015 - Family History Known Family History: Positive: Cardiac Disease, Hypertension, Diabetes - Social History Occupation: Employed Full-time Lives: With Family Alcohol Use: Rare Substance Use Type: Marijuana Substance Use Comment - Amount & Last Used: rarely Smoking Status (MU): Light Every Day Tobacco Smoker Type: Cigarettes Amount Used/How Often: 1/2 ppd Length of Time of Smoking/Using Tobacco: 20 YRS Have You Smoked in the Last Year: Yes Household Exposure Type: Cigarettes - Immunization History Most Recent Influenza Vaccination: none Most Recent Tetanus Shot: 2013 Most Recent Pneumonia Vaccination: never Vaccination Up to Date: Yes Review of Systems All Other Systems Reviewed And Are Negative: Yes Constitutional: Positive: Chills, Fatigue Skin: Positive: Negative Eyes: Positive: Negative ENT: Positive: Ear Ache, Sinus Congestion, Sinus Pain/Tenderness Respiratory: Positive: Cough Cardiovascular: Positive: Negative Gastrointestinal: Positive: Negative Genitourinary: Positive: Negative Motor: Positive: Negative Neurovascular: Positive: Negative Musculoskeletal: Positive: Negative Neurological: Positive: Negative Psychological: Positive: Negative Is Patient Immunocompromised?: No Physical Exam Triage Information Reviewed: Yes Appearance: Ill-Appearing Vital Signs: Initial Vital Signs Temp 98.7 F 07/12/19 15:58 Pulse 91 07/12/19 15:58 Resp 17 07/12/19 15:58 BP 118/58 07/12/19 15:58 Pulse Ox 100 07/12/19 15:58 Vital Signs Reviewed: Yes Eye Exam: Normal ENT: Positive: Nasal congestion Dental Exam: Normal Neck exam: Normal Respiratory Exam: Normal Respiratory: Positive: Normal breath sounds, No respiratory distress Cardiovascular Exam: Normal Musculoskeletal Exam: Normal Neurological Exam: Normal Psychological Exam: Normal Skin Exam: Normal Flu Course/Dx - Course Course Of Treatment: Rapid flu- negative - Differential Dx/Diagnosis Differential Diagnosis/HQI/PQRI: Influenza, Upper Respiratory Infection Provider Diagnosis: Acute viral syndrome Discharge ED - Sign-Out/Discharge Documenting (check all that apply): Patient Departure All imaging exams completed and their final reports reviewed: No Studies - Discharge Plan Condition: Stable Disposition: HOME Prescriptions: Guaifenesin/Pseudoephedrne HCl [Mucinex D ER 600-60 mg Tablet] 1 each PO Q12H # 14 tab.er.12h predniSONE 10 mg TAB [Deltasone 10 MG TAB*] 30 mg PO DAILY #12 tab Patient Education Materials: Viral Syndrome (ED) Referrals: [facility] [place] [facility] [[facility]] - If Needed No Primary Care Phys,NOPCP [Primary Care Provider] - - Billing Disposition and Condition Condition: STABLE Disposition: Home
== END 2019-07-12 16:36 | disposition home or self-care (01) ==
LOC: UCCORT 15:49
DX: B34.9 Viral infection, unspecified (principal); R09.81 Nasal congestion; R05 Cough; R53.83 Other fatigue; R53.81 Other malaise; F17.210 Nicotine dependence, cigarettes, uncomplicated; R68.83 Chills (without fever); H92.09 Otalgia, unspecified ear; Z88.0 Allergy status to penicillin; Z88.2 Allergy status to sulfonamides; Z88.8 Allergy status to other drugs, medicaments and biological substances; Z91.012 Allergy to eggs; Z91.09 Other allergy status, other than to drugs and biological substances
CPT/HCPCS: 99211; G0463

== ENCOUNTER 2020-11-07 02:32 | Inpatient (IN) ==
[2020-11-07] MEDS ORDERED: NS 0.9% 1000 ml BAG 1,000 ML IV ONE (02:56)
[2020-11-07 04:25] LABS: Albumin 3.7 g/dL (3.2-5.2); CO2 Carbon Dioxide 16 mmol/L (22-32); Calcium 8.8 mg/dL (8.6-10.3); Chloride 104 mmol/L (101-111); Sodium 132 mmol/L (135-145)
[2020-11-07 04:28] LABS: Troponin I 0.01 ng/mL (<0.03)
[2020-11-07 04:29] LABS: CKMB ng/mL 13.3 ng/mL (0.6-6.3)
[2020-11-07 04:31] LABS: ALT 12 U/L (7-52); Albumin/Globulin Ratio 1.1 (1-3); Alkaline Phosphatase 113 U/L (34-104); Blood Urea Nitrogen 9 mg/dL (6-24); C Reactive Protein 167.83 mg/L (<8.01); Creatine Kinase 288 U/L (10-223); EGFR African American 105.7 (>60); EGFR Non-African American 87.4 (>60); Globulin 3.3 g/dL (2-4); Glucose 146 mg/dL (70-100)
[2020-11-07 04:32] LABS: HCG Pregnancy 0.67 mIU/mL
[2020-11-07 04:33] LABS: Anion Gap 12 mmol/L (2-11)
[2020-11-07 04:49] LABS: ABS Basophils 0.1 10^3/ul (0-0.2); ABS Eosinophils 0.1 10^3/ul (0-0.6); ABS Lymphocytes 2.9 10^3/ul (1.0-4.8); ABS Monocytes 1.2 10^3/ul (0-0.8); ABS Neutrophils 17.4 10^3/ul (1.5-7.7); Eosinophil % 0.4 %; Hematocrit 40 % (35-47); Hemoglobin 13.3 g/dL (12.0-16.0); Lymphocyte % 13.5 %; Mean Corpuscular HGB Conc 33 g/dL (31-36); Mean Corpuscular Hemoglobin 28 pg (27-31); Mean Corpuscular Volume 85 fL (80-97); Mean Platelet Volume 9.8 fL (7.4-10.4); Platelet Count 286 10^3/uL (150-450); Red Cell Distribution Width 14 % (10-15); White Blood Count 21.8 10^3/uL (3.5-10.8)
[2020-11-07 04:58] LABS: INR 1.22 (0.82-1.09)
[2020-11-07 04:59] LABS: Activated Partial Thrombo Time 32.6 seconds (26.0-38.0)
[2020-11-07 05:09] LABS: Potassium Redraw 3.7 mmol/L (3.5-5.0)
[2020-11-07] MEDS ORDERED: Cefepime 2 GM in Dextrose 2 GM/50 ML BAG IV ONE (05:57)
[2020-11-07] MEDS ORDERED: Iohexol 350 (CONTRAST) 500 ML MDV IV ONE (07:05)
[2020-11-07] MEDS ORDERED: Dexamethasone IV 4 MG/ML VIAL 1 ml VIAL IV SLOW PU ONE (08:11)
[2020-11-07] MEDS ORDERED: guaiFENesin 100 mg/5 ml LIQ unit dose cup PO ONE (08:12)
[2020-11-07] MEDS ORDERED: Albuterol HFA INHALER 8 gm MDI INH ONE (08:14)
[2020-11-07 09:08] LABS: Rapid Strep Molecular Negative (Negative)
[2020-11-07 09:15] LABS: Influenza A Molecular Negative (Negative); Influenza B Molecular Negative (Negative)
[2020-11-07] MEDS ORDERED: Ondansetron 4 mg VIAL 2 MG/ML 2 ml VIAL IV PRN (10:24)
[2020-11-07] MEDS ORDERED: Albuterol HFA INHALER 8 gm MDI INH PRN (10:59)
[2020-11-07] MEDS ORDERED: Enoxaparin 40 MG/0.4 ML SYR SUBCUT SCH (11:00)
[2020-11-07] MEDS ORDERED: Azithromycin 500 mg/250 ml NS 500 MG/250 ML BAG IVPB ONE (11:41)
[2020-11-07 11:43] LABS: Urine Appearance Clear; Urine Bacteria Absent (Absent); Urine Bilirubin Negative (Negative); Urine Blood Negative (Negative); Urine Color Yellow; Urine Glucose Negative (Negative); Urine Ketones Negative (Negative); Urine Nitrite Negative (Negative); Urine Protein Negative (Negative); Urine Red Blood Cell Trace(0-2/hpf) (Absent); Urine Squamous Epithelial Cell Present (Absent); Urine Urobilinogen Negative (Negative); Urine White Blood Cell Absent (Absent)
[2020-11-07 11:53] LABS: Urine Specific Gravity > 1.060 (1.002-1.030)
[2020-11-07 12:25] LABS: Ferritin 103.2 ng/mL (11-307)
[2020-11-07 13:49] LABS: TSH Ultra Thyroid Stim Horm 3.54 mcIU/mL (0.34-5.60)
[2020-11-07] MEDS: Lactated Ringers 1000 ml BAG 1,000 ML IV SCH (13:59)
[2020-11-07] MEDS: cefTRIAXone 1 gm/50 mL NS BAG 1 GM/50 ML BAG IVPB SCH (15:42)
[2020-11-08] MEDS: Lactated Ringers 1000 ml BAG 1,000 ML IV SCH (04:30)
[2020-11-08 06:00] LABS: ABS Basophils 0.1 10^3/ul (0-0.2); ABS Lymphocytes 1.8 10^3/ul (1.0-4.8); ABS Monocytes 1.2 10^3/ul (0-0.8); ABS Neutrophils 18.3 10^3/ul (1.5-7.7); Eosinophil % 0.1 %; Hematocrit 35 % (35-47); Lymphocyte % 8.3 %; Mean Corpuscular HGB Conc 34 g/dL (31-36); Mean Corpuscular Hemoglobin 29 pg (27-31); Mean Corpuscular Volume 85 fL (80-97); Mean Platelet Volume 10.2 fL (7.4-10.4); Platelet Count 271 10^3/uL (150-450); Red Blood Count 4.18 10^6 /uL (3.70-4.87); Red Cell Distribution Width 14 % (10-15); White Blood Count 21.4 10^3/uL (3.5-10.8)
[2020-11-08 06:18] LABS: Calcium 8.7 mg/dL (8.6-10.3); EGFR African American 134.7 (>60); EGFR Non-African American 111.3 (>60); Potassium 3.9 mmol/L (3.5-5.0)
[2020-11-08] MEDS: guaiFENesin 100 mg/5 ml LIQ unit dose cup PO PRN ×3 (06:30→21:13)
[2020-11-08] MEDS: Nicotine PATCH 21 MG/24 HR PATCH TRANSDERM SCH (09:10)
[2020-11-08] MEDS: cefTRIAXone 1 gm/50 mL NS BAG 1 GM/50 ML BAG IVPB SCH (15:24)
[2020-11-08] MEDS ORDERED: Enoxaparin 40 MG/0.4 ML SYR SUBCUT SCH (21:00)
[2020-11-09] MEDS: guaiFENesin 100 mg/5 ml LIQ unit dose cup PO PRN ×2 (06:20→12:46)
[2020-11-09] MEDS: Nicotine PATCH 21 MG/24 HR PATCH TRANSDERM SCH (09:54)
[2020-11-09 16:19] VITALS: BP 148/80
== END 2020-11-09 17:25 | disposition home or self-care (01) | DRG 139 ==
LOC: MED 02:32 → ED 02:32 → MED 11:54
PROVIDERS: ADMIT Internal Medicine; ATTEND Internal Medicine

== ENCOUNTER 2024-06-13 03:02 | Observation (INO) ==
[2024-06-13 03:46] LABS: ABS Basophils 0.1 10^3/uL (0.0-0.1); ABS Eosinophils 0.3 10^3/uL (0.0-0.5); ABS Monocytes 1.2 10^3/uL (0.0-0.9); ABS Nucleated RBC 0.01 10^3/ul; Eosinophil % 2.5 %; Hematocrit 41.9 % (35-45); Hemoglobin 14.6 g/dL (11.5-14.3); Lymphocyte % 37.6 %; Mean Corpuscular Hemoglobin 30.3 pg (27-33); Mean Corpuscular Hgb Conc 34.8 g/dL (31-36); Mean Corpuscular Volume 86.9 fL (80-97); Mean Platelet Volume 9.1 fL (7.5-11.2); Nucleated Red Blood Cells % 0.1 %/100WBC (0.0-0.8); Platelet Count 287 10^3/uL (150-450); Red Blood Count 4.82 10^6/uL (3.63-4.92); Red Cell Distribution Width 13.9 % (12-17); White Blood Count 10.5 10^3/uL (3.8-11.8)
[2024-06-13 04:58] LABS: ALT 21 U/L (7-52); Acetaminophen < 15 mcg/mL; Albumin 3.8 g/dL (3.5-5.7); Albumin/Globulin Ratio 1.5 (1-3); Alcohol, S < 13 mg/dL (<13); Alkaline Phosphatase 124 U/L (35-149); Anion Gap 10 mmol/L (2-16); Blood Urea Nitrogen 14 mg/dL (6-24); CO2 Carbon Dioxide 23 mmol/L (22-32); Chloride 103 mmol/L (101-111); Creatinine, Serum 0.64 mg/dL (0.51-0.95); Globulin 2.6 g/dL (2-4); Glucose 129 mg/dL (70-100); Magnesium 1.7 mg/dL (1.9-2.7); Salicylate < 2.50 mg/dL (<30); Sodium 136 mmol/L (135-145); Total Bilirubin 0.3 mg/dL (0.2-1.0); Total Protein 6.4 g/dL (6.4-8.9); eGFR CKD-EPI 112.4 (>60)
[2024-06-13] MEDS: Magnesium Sulfate 2 gm BAG 2 GM/50 ML BAG IVPB ONE (06:08)
[2024-06-13] MEDS: NS 0.9% 1000 ml BAG 1,000 ML IV SCH (07:49)
[2024-06-13] MEDS: Al Hydrox/Mg Hydrox/Simet LIQ 30 ML UDC PO PRN (07:49)
[2024-06-13 08:01] LABS: HCG Pregnancy < 0.60 mIU/mL
[2024-06-13 08:36] LABS: Potassium Redraw 4.2 mmol/L (3.5-5.0)
[2024-06-14 05:31] VITALS: BP 132/86
[2024-06-14] MEDS ORDERED: Calcium Polycarbophil 625mg TB PO SCH (09:00)
== END 2024-06-14 06:10 | disposition home or self-care (01) ==
LOC: ED 03:02 → EDHOLD 03:02 → MEDTELE 15:36
PROVIDERS: ADMIT Internal Medicine; ATTEND Internal Medicine